=== PATIENT | male | born 1985 | race Asian ===

== ENCOUNTER 2017-07-02 15:13 | Emergency (ER) | payer OTHER ==
[~2017-07-02] VITALS: Ht 175.3 cm; Wt 68.2 kg
[2017-07-02] MEDS ORDERED: LIDOCAINE HCL/PF 1% 2 ML VIAL IM ONE (16:00)
[2017-07-02] MEDS ORDERED: CefTRIAXone SODIUM 1 GM/VIAL IM ONE (16:00)
[2017-07-02] MEDS ORDERED: IBUPROFEN 800 MG TABLET PO ONE (16:00)
[2017-07-02 18:25] VITALS: BP 134/84
== END 2017-07-02 18:39 | disposition home or self-care (01) ==
LOC: EMS 15:16
DX: S93.602A Unspecified sprain of left foot, initial encounter (principal); L03.116 Cellulitis of left lower limb; F17.210 Nicotine dependence, cigarettes, uncomplicated; X58.XXXA Exposure to other specified factors, initial encounter; Y93.89 Activity, other specified; Y92.89 Other specified places as the place of occurrence of the external cause; Y99.8 Other external cause status
CPT/HCPCS: 73630; 93005; 99284; J0696; J3490

== ENCOUNTER 2017-07-23 23:39 | Emergency (ER) | payer OTHER ==
[~2017-07-23] VITALS: Ht 177.8 cm; Wt 68.2 kg
[2017-07-24 00:30] VITALS: BP 156/98
== END 2017-07-24 02:10 | disposition home or self-care (01) ==
LOC: EMS 23:40
DX: L30.9 Dermatitis, unspecified (principal); F17.210 Nicotine dependence, cigarettes, uncomplicated
CPT/HCPCS: 99281

== ENCOUNTER 2017-07-25 06:12 | Emergency (ER) | payer OTHER ==
[~2017-07-25] VITALS: Ht 177.8 cm; Wt 68.2 kg
[2017-07-25 06:16] VITALS: BP 175/114
== END 2017-07-25 07:48 | disposition left against medical advice (07) ==
LOC: EMS 06:13
DX: Z76.0 Encounter for issue of repeat prescription (principal); Z53.21 Procedure and treatment not carried out due to patient leaving prior to being seen by health care provider